=== PATIENT | male | born 1940 | race African-American/Black ===

== ENCOUNTER 2017-04-01 18:50 | Emergency (ER) | payer MEDICARE, BC ==
[~2017-04-01] VITALS: Ht 185.4 cm; Wt 82.0 kg
[2017-04-01] MEDS ORDERED: ACETAMINOPHEN 325MG TABLET PO ONE (20:15)
[2017-04-01 22:29] VITALS: BP 116/72
== END 2017-04-01 22:36 | disposition home or self-care (01) ==
LOC: ER 21:13
DX: S43.401A Unspecified sprain of right shoulder joint, initial encounter (principal); Z91.012 Allergy to eggs; W19.XXXA Unspecified fall, initial encounter; Y93.89 Activity, other specified; Y92.89 Other specified places as the place of occurrence of the external cause; Y99.8 Other external cause status
CPT/HCPCS: 73030; 93005; 99284; A4565

== ENCOUNTER 2023-06-11 12:19 | Inpatient (IN) | payer BC, MEDICARE ==
[~2023-06-11] VITALS: Ht 185.4 cm; Wt 73.6 kg
[2023-06-11] MEDS: SODIUM CHLORIDE 0.9% 1000ML BAG (SEPSIS BOLUS) IV ONE (13:33)
[2023-06-11 14:00] LABS: BASOPHILS % 0.9 % (0.0-2.0); EOSINOPHILS % 0.6 % (0.0-5.0); HEMATOCRIT. 41.8 % (42.0-52.0); HEMOGLOBIN. 13.7 g/dL (14.0-18.0); LYMPHOCYTES % 16.6 % (20.0-50.0); MEAN CORPUSCULAR HEMOGLOBIN 29.5 pg (28.0-32.0); MEAN CORPUSCULAR HGB CONC 32.7 g/dL (31.0-37.0); MEAN CORPUSCULAR VOLUME 90.1 fL (80.0-94.0); MEAN PLATELET VOLUME 7.9 fl (7.4-10.4); NEUTROPHILS % 75.9 % (40.0-76.0); PLATELET 219 x1000/uL (130-400); RED BLOOD CELL COUNT 4.64 mill/uL (4.7-6.1); RED CELL DISTRIBUTION WIDTH 14.7 % (11.6-14.6)
[2023-06-11 14:11] LABS: INR 0.9; PROTHROMBIN TIME 10.1 sec (9.6-11.0)
[2023-06-11] MEDS: PIPERACILLIN/TAZO 3.375G/50ML 50 ML IV ONE (14:11)
[2023-06-11 14:15] LABS: ALANINE AMINOTRANSFERASE < 7 IU/L (10-49); ALBUMIN 4.2 g/dL (3.2-4.8); ASPARTATE AMINOTRANSFERASE 14 IU/L (<34); BILIRUBIN TOTAL 0.6 mg/dL (0.1-1.0); CALCIUM 9.3 mg/dL (8.7-10.4); CARBON DIOXIDE 24 mEq/L (21-32); CHLORIDE 106 mEq/L (98-107); GLUCOSE 122 mg/dL (70-105); POTASSIUM 4.3 mEq/L (3.5-5.1); PROTEIN TOTAL 7.1 g/dL (6.0-8.3); SODIUM 138 mEq/L (136-145); TROPONIN I HIGH SENSITIVITY 5 ng/L (3.0-53); UREA NITROGEN BLOOD 18 mg/dL (9-23)
[2023-06-11] MEDS ORDERED: ACETAMINOPHEN 325MG TABLET PO PRN ×3 (16:45→20:45)
[2023-06-11] MEDS ORDERED: ONDANSETRON HCL 4MG/2ML INJ IV PRN ×2 (16:45→20:45)
[2023-06-11] MEDS ORDERED: MORPHINE SULFATE 2 MG/ML CPJ (NOT FOR IM USE) IV PRN (16:45)
[2023-06-11] MEDS ORDERED: NALOXONE HCL 0.4MG/ML VIAL IV PRN (16:45)
[2023-06-11 16:51] LABS: CLARITY URINE CLOUDY (CLEAR); COLOR URINE YELLOW (YELLOW); GLUCOSE URINE 1+ (NEGATIVE); KETONES URINE NEGATIVE (NEGATIVE); LEUKOCYTE ESTERASE URINE 2+ (NEGATIVE); NITRITE URINE NEGATIVE (NEGATIVE); OCCULT BLOOD URINE 1+ (NEGATIVE); PROTEIN URINE TRACE (NEGATIVE); SPECIFIC GRAVITY URINE 1.018 (1.005-1.030)
[2023-06-11 17:22] LABS: BACTERIA URINE 4+; SQUAMOUS EPITHELIAL CELL URINE 1+ /lpf (RARE/1+); WBC URINE TNTC /hpf (0-2)
[2023-06-11 20:00] VITALS: BP 144/78; PULSE 84; RESP 16; TEMP 98.8
[2023-06-11 20:19] VITALS: BP 125/84; PULSE 82; RESP 13; TEMP 98.8
[2023-06-11] MEDS ORDERED: MAGNESIUM/ALUMINUM HYDROXIDE/SIMETHICONE 30ML UDC PO PRN (20:45)
[2023-06-11] MEDS ORDERED: DIPHENHYDRAMINE 50MG/ML VIAL IV PRN (20:45)
[2023-06-11] MEDS ORDERED: CLONIDINE 0.1MG TABLET PO PRN (20:45)
[2023-06-11] MEDS: SODIUM CHLORIDE 0.45% 1,000 ML IV SCH (21:09)
[2023-06-11] MEDS: VANCOMYCIN 1G PREMIX 200 ML IV NR (21:09)
[2023-06-11] MEDS ORDERED: PIPERACILLIN/TAZO 3.375G/50ML 50 ML IV SCH (22:00)
[2023-06-11] MEDS: ENOXAPARIN 40MG/0.4ML SYR SUBCUT SCH (22:18)
[2023-06-11] MEDS: LEVOFLOXACIN 500MG PREMIX 100 ML IV SCH (22:52)
[2023-06-11] MEDS: DEXT 5%/0.45% NACL 1000ML 1,000 ML IV SCH (22:53)
[2023-06-12] MEDS: PIPERACILLIN/TAZO 3.375G/50ML 50 ML IV SCH (00:04)
[2023-06-12 00:32] VITALS: BP 116/94; PULSE 73; RESP 14; TEMP 97.5
[2023-06-12 04:00] VITALS: BP 107/52; PULSE 64; RESP 13; TEMP 97.8
[2023-06-12] MEDS ORDERED: ATOR20TA65 MT (05:19)
[2023-06-12] MEDS ORDERED: TRIA1TAB94 MT (05:19)
[2023-06-12] MEDS ORDERED: RAMI5CAP65 PO (05:19)
[2023-06-12] MEDS ORDERED: GLIM1TAB MT (05:19)
[2023-06-12] MEDS ORDERED: DONE5TAB33 MT (05:19)
[2023-06-12] MEDS ORDERED: METF-414 PO (05:19)
[2023-06-12] MEDS ORDERED: MEMA10TA55 MT (05:19)
[2023-06-12 05:55] LABS: BASOPHILS % 0.9 % (0.0-2.0); EOSINOPHILS % 2.4 % (0.0-5.0); HEMATOCRIT. 33.8 % (42.0-52.0); HEMOGLOBIN. 11.3 g/dL (14.0-18.0); LYMPHOCYTES % 26.5 % (20.0-50.0); MEAN CORPUSCULAR HEMOGLOBIN 29.6 pg (28.0-32.0); MEAN CORPUSCULAR HGB CONC 33.6 g/dL (31.0-37.0); MEAN CORPUSCULAR VOLUME 88.3 fL (80.0-94.0); MEAN PLATELET VOLUME 7.6 fl (7.4-10.4); MONOCYTES % 6.6 % (2.0-8.0); NEUTROPHILS % 63.6 % (40.0-76.0); PLATELET 199 x1000/uL (130-400); RED BLOOD CELL COUNT 3.83 mill/uL (4.7-6.1); RED CELL DISTRIBUTION WIDTH 14.3 % (11.6-14.6); WHITE BLOOD COUNT 4.7 x1000/uL (4.5-11.0)
[2023-06-12 06:34] LABS: ALANINE AMINOTRANSFERASE < 7 IU/L (10-49); ALBUMIN 3.5 g/dL (3.2-4.8); ASPARTATE AMINOTRANSFERASE 12 IU/L (<34); BILIRUBIN TOTAL 0.8 mg/dL (0.1-1.0); CALCIUM 8.7 mg/dL (8.7-10.4); CARBON DIOXIDE 21 mEq/L (21-32); CHLORIDE 107 mEq/L (98-107); CREATININE 0.8 mg/dL (0.6-1.3); GLUCOSE 85 mg/dL (70-105); POTASSIUM 3.6 mEq/L (3.5-5.1); PROTEIN TOTAL 5.6 g/dL (6.0-8.3); SODIUM 135 mEq/L (136-145); THYROID STIMULATING HORMONE 1.68 uIU/mL (0.55-4.78); UREA NITROGEN BLOOD 14 mg/dL (9-23)
[2023-06-12 08:00] VITALS: BP 103/85; PULSE 63; RESP 18; TEMP 97.5
[2023-06-12] MEDS: METFORMIN HCL 500MG TABLET PO SCH (09:25)
[2023-06-12 12:00] VITALS: BP 90/60; PULSE 65; RESP 18; TEMP 97.8
[2023-06-12] MEDS ORDERED: VANCOMYCIN 750MG PREMIX 150 ML IV SCH (12:00)
[2023-06-12] MEDS ORDERED: VANCOMYCIN 1G PREMIX 200 ML IV SCH (12:00)
[2023-06-12 16:00] VITALS: BP 107/71; PULSE 69; RESP 20; TEMP 97.5
[2023-06-12 20:00] VITALS: BP 98/54; PULSE 88; RESP 20; TEMP 98.9
[2023-06-13] VITALS: BP 94/78; PULSE 82; RESP 18; TEMP 98.8
[2023-06-13 04:00] VITALS: BP 125/53; PULSE 81; RESP 16; TEMP 98.8
[2023-06-13] MEDS: CEFTRIAXONE 1GM PREMIX 50 ML IV SCH (06:14)
[2023-06-13 08:00] VITALS: BP 108/96; PULSE 87; RESP 15; TEMP 98.6
[2023-06-13] MEDS: BLOOD SUGAR DIAGNOSTIC STRIP TEST SCH (11:01)
[2023-06-13 11:13] LABS: BASOPHILS % 0.8 % (0.0-2.0); HEMATOCRIT. 35.8 % (42.0-52.0); LYMPHOCYTES % 32.5 % (20.0-50.0); MEAN CORPUSCULAR HGB CONC 33.7 g/dL (31.0-37.0); MEAN CORPUSCULAR VOLUME 89.2 fL (80.0-94.0); MEAN PLATELET VOLUME 7.7 fl (7.4-10.4); NEUTROPHILS % 58.7 % (40.0-76.0); PLATELET 213 x1000/uL (130-400); RED BLOOD CELL COUNT 4.01 mill/uL (4.7-6.1); WHITE BLOOD COUNT 4.2 x1000/uL (4.5-11.0)
[2023-06-13 11:27] LABS: CALCIUM 8.9 mg/dL (8.7-10.4); CARBON DIOXIDE 24 mEq/L (21-32); CHLORIDE 105 mEq/L (98-107); CREATININE 0.8 mg/dL (0.6-1.3); GLUCOSE 92 mg/dL (70-105); IRON 40 ug/dL (65-175); SODIUM 135 mEq/L (136-145); TOTAL IRON BINDING CAPACITY 151 ug/dl (250-425); UREA NITROGEN BLOOD 10 mg/dL (9-23)
[2023-06-13 12:00] VITALS: BP 94/78; PULSE 78; RESP 15; TEMP 98.8
[2023-06-13 15:46] VITALS: BP 136/85; PULSE 89; RESP 20; TEMP 98.6
[2023-06-13 20:00] VITALS: BP 121/92; PULSE 106; RESP 18; TEMP 98
[2023-06-14] VITALS: BP 131/59; PULSE 95; RESP 16; TEMP 98.8
[2023-06-14 04:00] VITALS: BP 119/56; PULSE 93; RESP 16; TEMP 98.4
[2023-06-14 07:40] LABS: BASOPHILS % 0.8 % (0.0-2.0); EOSINOPHILS % 1.7 % (0.0-5.0); HEMATOCRIT. 37.3 % (42.0-52.0); HEMOGLOBIN. 12.8 g/dL (14.0-18.0); LYMPHOCYTES % 32.5 % (20.0-50.0); MEAN CORPUSCULAR HEMOGLOBIN 29.9 pg (28.0-32.0); MEAN CORPUSCULAR HGB CONC 34.3 g/dL (31.0-37.0); MEAN CORPUSCULAR VOLUME 87.2 fL (80.0-94.0); MEAN PLATELET VOLUME 7.9 fl (7.4-10.4); MONOCYTES % 7.9 % (2.0-8.0); NEUTROPHILS % 57.1 % (40.0-76.0); PLATELET 211 x1000/uL (130-400); RED BLOOD CELL COUNT 4.28 mill/uL (4.7-6.1); RED CELL DISTRIBUTION WIDTH 14.1 % (11.6-14.6); WHITE BLOOD COUNT 3.7 x1000/uL (4.5-11.0)
[2023-06-14 09:08] LABS: CARBON DIOXIDE 21 mEq/L (21-32); CHLORIDE 104 mEq/L (98-107); CREATININE 0.8 mg/dL (0.6-1.3); GLUCOSE 91 mg/dL (70-105); POTASSIUM 3.7 mEq/L (3.5-5.1); SODIUM 135 mEq/L (136-145); UREA NITROGEN BLOOD 10 mg/dL (9-23)
[2023-06-14] MEDS: FERROUS SULFATE 325MG TABLET PO SCH (09:45)
[2023-06-14 12:00] VITALS: BP 145/86; PULSE 87; RESP 21; TEMP 98.3
[2023-06-14] MEDS: MULTIVITAMINS,THER W-MINERALS TABLET PO SCH (13:13)
[2023-06-14] MEDS: POTASSIUM CHLORIDE 20MEQ TABLET SR PO NR (13:13)
[2023-06-14] MEDS: ZINC SULFATE 220 MG ( 50 ) CAPSULE PO NR (13:13)
[2023-06-14] MEDS: CHOLECALCIFEROL (D3) 1000 UNIT TABLET PO SCH (13:13)
[2023-06-14] MEDS: ASCORBIC ACID 250 MG TABLET PO SCH (13:14)
[2023-06-14] MEDS: ZINC SULFATE 220 MG ( 50 ) CAPSULE PO SCH (14:36)
[2023-06-14 17:00] VITALS: BP 112/63; PULSE 88; RESP 18; TEMP 97.6
[2023-06-14 20:00] VITALS: BP 99/53; PULSE 79; RESP 16; TEMP 97.8
[2023-06-15] VITALS: BP 125/71; PULSE 92; RESP 16; TEMP 97.9
[2023-06-15 04:00] VITALS: BP 129/73; PULSE 70; RESP 16; TEMP 97.2
[2023-06-15 08:10] VITALS: BP 114/56; PULSE 74; RESP 20; TEMP 97.9
[2023-06-15] MEDS ORDERED: CHOL-36 PO (09:54)
[2023-06-15] MEDS ORDERED: ASCO250T22 PO (09:54)
[2023-06-15] MEDS ORDERED: TOPUD PO (09:54)
[2023-06-15] MEDS ORDERED: FERR-63 PO (09:54)
[2023-06-15] MEDS ORDERED: ZINC1CAP2 PO (09:54)
[2023-06-15] MEDS ORDERED: LEVO-65 MT (09:55)
[2023-06-15 12:19] VITALS: BP 133/58; PULSE 87; RESP 20; TEMP 98
[2023-06-15 16:00] VITALS: BP 118/56; PULSE 80; RESP 18; TEMP 98.2
[2023-06-15 18:57] VITALS: BP 118/56; PULSE 80; TEMP 97.8; O2SAT 97
== END 2023-06-15 22:14 | disposition home health service (06) | DRG 871 ==
LOC: ER 12:19 → 3WST 15:28 → EDBEDREQ 15:30 → EDBEDREQTM 15:30 → 6WST 06-14 17:18
PROVIDERS: ADMIT Internal Medicine Geriatric Medicine; ATTEND Internal Medicine Geriatric Medicine
DX: A41.9 Sepsis, unspecified organism (principal); L89.014 Pressure ulcer of right elbow, stage 4; L89.154 Pressure ulcer of sacral region, stage 4; N39.0 Urinary tract infection, site not specified; E44.1 Mild protein-calorie malnutrition; E87.1 Hypo-osmolality and hyponatremia; G93.40 Encephalopathy, unspecified; G30.9 Alzheimer's disease, unspecified; F02.C0 Dementia in other diseases classified elsewhere, severe, without behavioral disturbance, psychotic disturbance, mood disturbance, and anxiety; I10 Essential (primary) hypertension; Z74.01 Bed confinement status; B96.89 Other specified bacterial agents as the cause of diseases classified elsewhere; D64.9 Anemia, unspecified; L89.312 Pressure ulcer of right buttock, stage 2; B96.20 Unspecified Escherichia coli [E. coli] as the cause of diseases classified elsewhere; D50.9 Iron deficiency anemia, unspecified; D63.8 Anemia in other chronic diseases classified elsewhere; E11.649 Type 2 diabetes mellitus with hypoglycemia without coma; Z68.21 Body mass index [BMI] 21.0-21.9, adult; E87.6 Hypokalemia; G20.A1 Parkinson's disease without dyskinesia, without mention of fluctuations; S80.812A Abrasion, left lower leg, initial encounter; X58.XXXA Exposure to other specified factors, initial encounter; Y93.89 Activity, other specified; Y92.89 Other specified places as the place of occurrence of the external cause; Y99.8 Other external cause status
CPT/HCPCS: 36415; 71045; 80048; 80053; 81003; 82962; 83036; 83540; 83550; 83605; 84145; 84443; 84484; 85025; 87077; 87186; 93005; 93306; 93970; 99291; J0696; J1650; J1956; J2543; J3370; J7030

== ENCOUNTER 2023-09-20 10:35 | Inpatient (IN) | payer BC, MEDICARE ==
[~2023-09-20] VITALS: Ht 185.4 cm; Wt 68.9 kg
[~2023-09-20 10:35] MED LIST: ASCO250T22 PO; ATOR20TA65 MT; CHOL-36 PO; DONE5TAB33 MT; FERR-63 PO; GLIM1TAB MT; LEVO-65 MT; MEMA10TA55 MT; METF-414 PO; RAMI5CAP65 PO; TOPUD PO; TRIA1TAB94 MT; ZINC1CAP2 PO
[2023-09-20 10:39] VITALS: O2SAT 92
[2023-09-20] MEDS: VANCOMYCIN 1G PREMIX 200 ML IV ONE (10:45)
[2023-09-20] MEDS: SODIUM CHLORIDE 0.9% 1,000 ML IV ONE (10:53)
[2023-09-20] MEDS: PIPERACILLIN/TAZO 3.375G/50ML 50 ML IV ONE (11:04)
[2023-09-20 11:05] LABS: HEMATOCRIT. 37.1 % (42.0-52.0); HEMOGLOBIN. 11.9 g/dL (14.0-18.0); MEAN CORPUSCULAR HEMOGLOBIN 28.5 pg (28.0-32.0); MEAN CORPUSCULAR HGB CONC 32.2 g/dL (31.0-37.0); MEAN CORPUSCULAR VOLUME 88.6 fL (80.0-94.0); MEAN PLATELET VOLUME 8.6 fl (7.4-10.4); PLATELET 395 x1000/uL (130-400); RED BLOOD CELL COUNT 4.18 mill/uL (4.7-6.1); RED CELL DISTRIBUTION WIDTH 16.4 % (11.6-14.6); WHITE BLOOD COUNT 13.6 x1000/uL (4.5-11.0)
[2023-09-20 11:06] LABS: DIFFERENTIAL COMMENT 1
[2023-09-20] MEDS: SODIUM CHLORIDE 0.9% 1000ML BAG (SEPSIS BOLUS) IV ONE (11:08)
[2023-09-20 11:17] LABS: POTASSIUM 4.7 mEq/L (3.5-5.1)
[2023-09-20 11:18] LABS: CALCIUM 9.6 mg/dL (8.7-10.4)
[2023-09-20 11:20] LABS: INR 0.9; PROTHROMBIN TIME 10.6 sec (9.6-11.0)
[2023-09-20 11:26] LABS: LACTIC ACID 2.2 mmol/L (0.4-2.0)
[2023-09-20 11:29] LABS: CREATININE 2.7 mg/dL (0.6-1.3)
[2023-09-20 12:01] LABS: ANISOCYTOSIS 1+; PLATELET ESTIMATE NORMAL
[2023-09-20] MEDS: LIDOCAINE HCL 1% 10 MG/ML 10ML VIAL ONE (12:55)
[2023-09-20] MEDS: FAMOTIDINE 20MG/2ML VIAL IV SCH (13:00)
[2023-09-20] MEDS ORDERED: DEXT 5%/0.45% NACL KCL 20MEQ/L 1,000 ML IV SCH ×2 (13:00→20:30)
[2023-09-20] MEDS ORDERED: DEXT 5% WATER 500 ML IV NR (13:00)
[2023-09-20] MEDS ORDERED: ACETAMINOPHEN 650MG/20.3ML UDC PO PRN (13:00)
[2023-09-20] MEDS ORDERED: DEXTROSE 50% WATER 50ML SYRINGE IV PRN (13:15)
[2023-09-20] MEDS: BLOOD SUGAR DIAGNOSTIC STRIP TEST SCH (14:00)
[2023-09-20] MEDS: INSULIN LISPRO 100 UNITS/ML SUBCUT SCH (14:00)
[2023-09-20] MEDS: SODIUM CHLORIDE 0.45% 1,000 ML IV SCH (15:31)
[2023-09-20 21:15] VITALS: BP 74/43; PULSE 88; RESP 18; TEMP 96.8
[2023-09-20 22:41] LABS: PHOSPHORUS 3.6 mg/dL (2.5-4.9)
[2023-09-20] MEDS: PIPERACILLIN/TAZO 3.375G/50ML 50 ML IV SCH (23:05)
[2023-09-20] MEDS: SODIUM CHLORIDE 0.9% 250 ML IV NR (23:10)
[2023-09-20] MEDS: MIDODRINE HCL 5MG TABLET PO SCH (23:47)
[2023-09-21] VITALS: BP 97/53; PULSE 90; RESP 18; TEMP 97.7
[2023-09-21 04:00] VITALS: BP 101/57; PULSE 87; RESP 20; TEMP 97.9
[2023-09-21 06:36] LABS: HEMATOCRIT. 28.6 % (42.0-52.0); HEMOGLOBIN. 9.4 g/dL (14.0-18.0); MEAN CORPUSCULAR HEMOGLOBIN 28.4 pg (28.0-32.0); MEAN CORPUSCULAR HGB CONC 32.9 g/dL (31.0-37.0); MEAN CORPUSCULAR VOLUME 86.2 fL (80.0-94.0); MEAN PLATELET VOLUME 8.8 fl (7.4-10.4); PLATELET 254 x1000/uL (130-400); RED BLOOD CELL COUNT 3.32 mill/uL (4.7-6.1); RED CELL DISTRIBUTION WIDTH 15.6 % (11.6-14.6); WHITE BLOOD COUNT 12.2 x1000/uL (4.5-11.0)
[2023-09-21 06:43] LABS: DIFFERENTIAL COMMENT 1
[2023-09-21 06:50] LABS: CHLORIDE 115 mEq/L (98-107); POTASSIUM 3.3 mEq/L (3.5-5.1); SODIUM 143 mEq/L (136-145)
[2023-09-21 06:51] LABS: CALCIUM 7.7 mg/dL (8.7-10.4); CARBON DIOXIDE 18 mEq/L (21-32)
[2023-09-21 06:55] LABS: IRON 16 ug/dL (65-175); URIC ACID 7.8 mg/dL (3.7-9.2)
[2023-09-21 06:56] LABS: GLUCOSE 165 mg/dL (70-105); UREA NITROGEN BLOOD 64 mg/dL (9-23)
[2023-09-21 06:58] LABS: PHOSPHORUS 2.5 mg/dL (2.5-4.9); TOTAL IRON BINDING CAPACITY 283 ug/dl (250-425)
[2023-09-21 07:04] LABS: CREATININE 1.5 mg/dL (0.6-1.3)
[2023-09-21 07:40] LABS: VITAMIN B12 SERUM 518 pg/mL (211-911)
[2023-09-21 07:42] LABS: FOLIC ACID (FOLATE) SERUM 5.86 ng/mL (>5.38)
[2023-09-21 08:00] VITALS: BP 140/86; PULSE 87; RESP 20; TEMP 97.6
[2023-09-21] MEDS: POTASSIUM CHLORIDE 20MEQ/PACKET PO NR (09:48)
[2023-09-21] MEDS: ENOXAPARIN 30MG/0.3ML SYR SUBCUT NR (09:49)
[2023-09-21] MEDS: ASCORBIC ACID 250 MG TABLET PO SCH (09:50)
[2023-09-21] MEDS: MULTIVITAMINS,THER W-MINERALS TABLET PO SCH (09:50)
[2023-09-21] MEDS: SODIUM CHL 0.45% + KCL 20MEQ/L 1,000 ML IV SCH (10:39)
[2023-09-21 10:44] LABS: IRON 18 ug/dL (65-175)
[2023-09-21 10:49] LABS: TOTAL IRON BINDING CAPACITY 284 ug/dl (250-425)
[2023-09-21 12:00] VITALS: BP 130/79; PULSE 88; RESP 16; TEMP 97.4
[2023-09-21] MEDS: PIPERACILLIN/TAZO 3.375G/50ML 50 ML IV SCH (14:31)
[2023-09-21 14:47] LABS: SODIUM URINE RANDOM 87 mEq/L
[2023-09-21 14:51] LABS: CLARITY URINE CLOUDY (CLEAR); COLOR URINE YELLOW (YELLOW); GLUCOSE URINE NEGATIVE (NEGATIVE); KETONES URINE NEGATIVE (NEGATIVE); LEUKOCYTE ESTERASE URINE 3+ (NEGATIVE); NITRITE URINE NEGATIVE (NEGATIVE); OCCULT BLOOD URINE 1+ (NEGATIVE); PROTEIN URINE TRACE (NEGATIVE); SPECIFIC GRAVITY URINE 1.017 (1.005-1.030); UROBILINOGEN URINE 0.2 E.U./dL (0.2-1.0)
[2023-09-21 15:03] LABS: SQUAMOUS EPITHELIAL CELL URINE 1+ /lpf (RARE/1+)
[2023-09-21 15:04] LABS: BACTERIA URINE 1+
[2023-09-21 15:07] LABS: WBC URINE 25-50 /hpf (0-2)
[2023-09-21 15:08] LABS: RBC URINE 0-2 /hpf (0-2)
[2023-09-21 16:00] VITALS: BP 137/63; PULSE 105; RESP 18; TEMP 97.1
[2023-09-21 17:17] LABS: PLATELET ESTIMATE NORMAL
[2023-09-21 18:38] LABS: OSMOLALITY URINE 536 mOsm/kg (500-850)
[2023-09-21 20:00] VITALS: BP 131/34; PULSE 99; RESP 20; TEMP 99.2
[2023-09-22] VITALS: BP 129/35; PULSE 93; RESP 20; TEMP 98.9
[2023-09-22 04:00] VITALS: BP_SYST 114; BP_SYST 116; BP_DIAS 15; BP_DIAS 70; PULSE 100; PULSE 87; RESP 20; RESP 22; TEMP 97.8; TEMP 98.1
[2023-09-22 08:00] VITALS: BP 125/68; PULSE 90; RESP 20; TEMP 98.6
[2023-09-22 08:25] LABS: CHLORIDE 119 mEq/L (98-107); SODIUM 145 mEq/L (136-145)
[2023-09-22 08:26] LABS: CARBON DIOXIDE 17 mEq/L (21-32)
[2023-09-22 08:27] LABS: CALCIUM 8.7 mg/dL (8.7-10.4)
[2023-09-22 08:30] LABS: BASOPHILS % 0.2 % (0.0-2.0); EOSINOPHILS % 0.1 % (0.0-5.0); HEMATOCRIT. 33.4 % (42.0-52.0); HEMOGLOBIN. 10.6 g/dL (14.0-18.0); LYMPHOCYTES % 9.8 % (20.0-50.0); MEAN CORPUSCULAR HEMOGLOBIN 28.3 pg (28.0-32.0); MEAN CORPUSCULAR HGB CONC 31.7 g/dL (31.0-37.0); MEAN CORPUSCULAR VOLUME 89.5 fL (80.0-94.0); MEAN PLATELET VOLUME 9.4 fl (7.4-10.4); MONOCYTES % 4.2 % (2.0-8.0); NEUTROPHILS % 85.7 % (40.0-76.0); PLATELET 251 x1000/uL (130-400); RED BLOOD CELL COUNT 3.73 mill/uL (4.7-6.1); RED CELL DISTRIBUTION WIDTH 16.9 % (11.6-14.6); WHITE BLOOD COUNT 14.1 x1000/uL (4.5-11.0)
[2023-09-22 08:31] LABS: CREATININE 1.4 mg/dL (0.6-1.3); GLUCOSE 152 mg/dL (70-105)
[2023-09-22 08:33] LABS: ALANINE AMINOTRANSFERASE 10 IU/L (10-49); ALBUMIN 3.2 g/dL (3.2-4.8); ASPARTATE AMINOTRANSFERASE 20 IU/L (<34)
[2023-09-22 08:34] LABS: BILIRUBIN TOTAL 0.3 mg/dL (0.1-1.0)
[2023-09-22 08:45] LABS: UREA NITROGEN BLOOD 44 mg/dL (9-23)
[2023-09-22] MEDS: ENOXAPARIN 30MG/0.3ML SYR SUBCUT SCH (09:00)
[2023-09-22] MEDS ORDERED: VANCOMYCIN 1G PREMIX 200 ML IV SCH (09:15)
[2023-09-22] MEDS: DEXT 5%/0.45% NACL 1000ML 1,000 ML IV SCH (10:44)
[2023-09-22] MEDS: VANCOMYCIN 1.5GM/250ML 250 ML IV SCH (11:10)
[2023-09-22 12:00] VITALS: BP 99/76; PULSE 91; RESP 20; TEMP 98.4
[2023-09-22] MEDS: CITRIC ACID/SODIUM CITRATE SOLN 30ML UDC PO SCH (13:00)
[2023-09-22] MEDS: FERROUS SULFATE 300MG/5ML UDC PO SCH (13:48)
[2023-09-22 16:00] VITALS: BP 146/45; PULSE 99; RESP 16; TEMP 97.6
[2023-09-22 20:00] VITALS: BP 125/22; PULSE 99; RESP 19; TEMP 99.7
[2023-09-23] VITALS: BP 116/15; PULSE 100; RESP 20; TEMP 98.7
[2023-09-23 04:00] VITALS: BP 116/20; PULSE 79; RESP 19; TEMP 98.1
[2023-09-23 07:39] LABS: CALCIUM 8.4 mg/dL (8.7-10.4); CARBON DIOXIDE 20 mEq/L (21-32); CHLORIDE 118 mEq/L (98-107); POTASSIUM 3.8 mEq/L (3.5-5.1); SODIUM 147 mEq/L (136-145)
[2023-09-23 07:44] LABS: CREATININE 1.2 mg/dL (0.6-1.3)
[2023-09-23 07:45] LABS: GLUCOSE 195 mg/dL (70-105); UREA NITROGEN BLOOD 34 mg/dL (9-23)
[2023-09-23 08:00] VITALS: BP 99/56; PULSE 90; RESP 17; TEMP 98.2
[2023-09-23 08:06] LABS: BASOPHILS % 0.4 % (0.0-2.0); EOSINOPHILS % 0.9 % (0.0-5.0); HEMATOCRIT. 28.2 % (42.0-52.0); HEMOGLOBIN. 9.3 g/dL (14.0-18.0); LYMPHOCYTES % 16.5 % (20.0-50.0); MEAN CORPUSCULAR HEMOGLOBIN 28.6 pg (28.0-32.0); MEAN CORPUSCULAR HGB CONC 32.9 g/dL (31.0-37.0); MEAN CORPUSCULAR VOLUME 86.9 fL (80.0-94.0); MEAN PLATELET VOLUME 9.1 fl (7.4-10.4); NEUTROPHILS % 76.2 % (40.0-76.0); PLATELET 246 x1000/uL (130-400); RED BLOOD CELL COUNT 3.24 mill/uL (4.7-6.1); WHITE BLOOD COUNT 8.8 x1000/uL (4.5-11.0)
[2023-09-23] MEDS: VANCOMYCIN 1GM/200ML PMX (BAXTER) IV SCH (08:34)
[2023-09-23 12:00] VITALS: BP 113/33; PULSE 89; RESP 17; TEMP 97.9
[2023-09-23 16:00] VITALS: BP 95/26; PULSE 91; RESP 17; TEMP 97.8
[2023-09-23 20:00] VITALS: BP 114/65; PULSE 105; RESP 19; TEMP 97.2
[2023-09-24] VITALS (7 sets, daily range): BP systolic 93–127; BP diastolic 11–40; PULSE 77–98; RESP 18–19; TEMP 97.7–100.6
[2023-09-24 07:02] LABS: BASOPHILS % 0.6 % (0.0-2.0); EOSINOPHILS % 2.6 % (0.0-5.0); HEMATOCRIT. 27.3 % (42.0-52.0); HEMOGLOBIN. 9.1 g/dL (14.0-18.0); LYMPHOCYTES % 21.9 % (20.0-50.0); MEAN CORPUSCULAR HEMOGLOBIN 28.7 pg (28.0-32.0); MEAN CORPUSCULAR HGB CONC 33.5 g/dL (31.0-37.0); MEAN CORPUSCULAR VOLUME 85.6 fL (80.0-94.0); MEAN PLATELET VOLUME 9.1 fl (7.4-10.4); NEUTROPHILS % 68.9 % (40.0-76.0); PLATELET 240 x1000/uL (130-400); RED BLOOD CELL COUNT 3.19 mill/uL (4.7-6.1); RED CELL DISTRIBUTION WIDTH 15.9 % (11.6-14.6); WHITE BLOOD COUNT 6.6 x1000/uL (4.5-11.0)
[2023-09-24 07:04] LABS: CHLORIDE 115 mEq/L (98-107); POTASSIUM 3.4 mEq/L (3.5-5.1); SODIUM 146 mEq/L (136-145)
[2023-09-24 07:05] LABS: CALCIUM 8.2 mg/dL (8.7-10.4); CARBON DIOXIDE 22 mEq/L (21-32)
[2023-09-24 07:10] LABS: GLUCOSE 134 mg/dL (70-105); UREA NITROGEN BLOOD 22 mg/dL (9-23)
[2023-09-24] MEDS ORDERED: FE300LUD PO (09:43)
[2023-09-24] MEDS ORDERED: MIDO5TAB4 PO (09:43)
[2023-09-24] MEDS ORDERED: DONE-53 PO (09:43)
[2023-09-24] MEDS: KCL 20MEQ/100ML X 2 FOR TOTAL KCL 40MEQ/200ML IV SCH (10:10)
[2023-09-24 11:13] LABS: POTASSIUM 4.1 mEq/L (3.5-5.1)
[2023-09-24 19:08] LABS: POTASSIUM 4.1 mEq/L (3.5-5.1)
[2023-09-24] MEDS: MIDODRINE HCL 5MG TABLET PO NR (20:58)
[2023-09-24] MEDS: SULFAMETHOXAZOLE/TRIMETHOPRIM 800/160MG TABLET PO NR (20:58)
[2023-09-25] VITALS: BP 128/48; PULSE 81; RESP 17; TEMP 97.9
[2023-09-25 04:00] VITALS: BP 130/72; PULSE 80; RESP 17; TEMP 97.6
== END 2023-09-25 08:40 | disposition home health service (06) | DRG 871 ==
LOC: ER 10:35 → EDBEDREQ 12:30 → EDBEDREQTM 12:30 → 5WST 17:34 → 7WST 21:25
PROVIDERS: ADMIT Internal Medicine Geriatric Medicine; ATTEND Internal Medicine Geriatric Medicine
PROC: 02HV33Z Insertion of Infusion Device into Superior Vena Cava, Percutaneous Approach (ICD-10-PCS; principal; 2023-09-20)
PROC: B548ZZA Ultrasonography of Superior Vena Cava, Guidance (ICD-10-PCS; 2023-09-20)
DX: A41.9 Sepsis, unspecified organism (principal); G92.9 Unspecified toxic encephalopathy; L89.154 Pressure ulcer of sacral region, stage 4; E87.0 Hyperosmolality and hypernatremia; N17.9 Acute kidney failure, unspecified; E87.20 Acidosis, unspecified; N39.0 Urinary tract infection, site not specified; M86.68 Other chronic osteomyelitis, other site; E11.65 Type 2 diabetes mellitus with hyperglycemia; Z66 Do not resuscitate; Z20.822 Contact with and (suspected) exposure to COVID-19; E11.69 Type 2 diabetes mellitus with other specified complication; G20.A1 Parkinson's disease without dyskinesia, without mention of fluctuations; F02.C0 Dementia in other diseases classified elsewhere, severe, without behavioral disturbance, psychotic disturbance, mood disturbance, and anxiety; I10 Essential (primary) hypertension; R62.7 Adult failure to thrive; D64.9 Anemia, unspecified; E87.6 Hypokalemia; Z68.20 Body mass index [BMI] 20.0-20.9, adult; Z88.8 Allergy status to other drugs, medicaments and biological substances; Z86.16 Personal history of COVID-19; Z79.4 Long term (current) use of insulin; Z79.84 Long term (current) use of oral hypoglycemic drugs; Z79.899 Other long term (current) drug therapy; Z74.01 Bed confinement status
CPT/HCPCS: 36415; 36573; 71045; 76770; 80048; 80053; 80202; 81003; 82270; 82607; 82746; 82962; 83036; 83540; 83550; 83605; 83735; 83930; 83935; 84100; 84132; 84145; 84153; 84300; 84550; 85025; 87426; 92610; 93005; 99291; C1725; J1650; J1815; J2543; J3370; J3480; J3490; J7030